=== PATIENT | male | born 1985 | race Two or more races ===

== ENCOUNTER 2016-06-30 09:57 | Day surgery (SDC) | payer OTHER ==
[2016-06-30] MEDS ORDERED: CEFAZOLIN 2 GM/50 ML (PMX) 50 ML IVPB ONE (10:00)
[2016-06-30] MEDS ORDERED: SOD CHLORIDE 0.9% 1,000 ML IV SCH (10:00)
[2016-06-30 11:01] VITALS: BP 132/84; PULSE 77; RESP 16
[2016-06-30] MEDS ORDERED: BUPIVACAINE 0.25% (MPF) 10 ML 10 ML VIAL ONE (12:08)
[2016-06-30] MEDS ORDERED: MIDAZOLAM 1 MG/ML 2 ML INJ ONE (12:35)
[2016-06-30] MEDS ORDERED: FENTAnyl 50 MCG/ML VIAL ONE (12:35)
[2016-06-30] MEDS ORDERED: PROPOFOL 20 ML ONE (13:10)
[2016-06-30] MEDS ORDERED: LIDOCAINE 2% (SDV) 5 ML INJ ONE (13:10)
[2016-06-30] MEDS ORDERED: CEFAZOLIN 1 GM INJ ONE (13:10)
[2016-06-30] MEDS ORDERED: ONDANSETRON 4 MG INJ ONE (13:11)
[2016-06-30 13:27] VITALS: BP 111/57; PULSE 78; RESP 13
[2016-06-30] MEDS ORDERED: DIPHENHYDRAMINE 50 MG INJ IV PRN (13:30)
[2016-06-30] MEDS ORDERED: HYDROCODONE/APAP (5/325) TAB PO ONE (13:30)
[2016-06-30] MEDS ORDERED: MEPERIDINE 25 MG INJ IV PRN (13:30)
[2016-06-30] MEDS ORDERED: FENTAnyl 50 MCG/ML VIAL IV PRN (13:30)
[2016-06-30] MEDS ORDERED: morphine (1 MG/ML) 10ML SYRINGE IV PRN (13:30)
[2016-06-30] MEDS ORDERED: ONDANSETRON 4 MG INJ IV PRN (13:30)
[2016-06-30 13:32] VITALS: BP 112/57; PULSE 76; RESP 13
[2016-06-30 14:50] VITALS: BP 129/83; PULSE 73; RESP 16
--- NOTE | 2016-06-30 15:40 | OPR ---
DATE OF OPERATION: 06/30/2016 INDICATION: This is a 30-year-old male with a left scalp mass. He requests surgical excision. Ris ks, alternatives, benefits, and personnel were discussed with the patient. The patient expressed un derstanding and consents to the operation. PREOPERATIVE DIAGNOSIS: Left scalp mass. POSTOPERATIVE DIAGNOSIS: Left scalp mass. OPERATION PERFORMED: 1. Excision of left scalp mass with incision size of 6 cm and mass size of 5 cm. 2. Localized adjacent tissue transfer with the use of skin flaps. SURGEON: Geovany Cobb MD SPECIMEN: Left scalp mass. COMPLICATIONS: None. ANESTHESIA: General. PROCEDURE: The patient was taken to the OR and prepped and draped in usual sterile fashion. Surgic al timeout was performed. IV antibiotics were given. Transverse incision is made with a 15 blade o sunitha the left scalp mass. Dissection cautery was carried down to the mass and circumferentially exci sed. There was good hemostasis. Due to the large tissue defect, localized adjacent tissue transfer with the use of skin flaps was performed. Multilayer closure with interrupted 3-0 Vicryl and runni ng 4-0 Monocryl. Local anesthesia was injected. Dry dressings were applied. Dictated By: GEOVANY COELHO/SYLVIE Conf#: [id number] DID#: [id number]
== END 2016-06-30 14:58 | disposition home or self-care (01) ==
LOC: SDS 09:57
PROVIDERS: ATTEND Surgery
DX: D17.0 Benign lipomatous neoplasm of skin and subcutaneous tissue of head, face and neck (principal)
CPT/HCPCS: 14020; 88307; J0690; J2250; J2405; J3010; Z7512; Z7610